=== PATIENT | female | born 1985 | race Hispanic/Latino ===

== ENCOUNTER 2016-07-01 05:55 | Day surgery (SDC) | payer OTHER ==
[~2016-07-01] VITALS: Ht 160 cm; Wt 63.7 kg
[2016-07-01] VITALS (7 sets, daily range): BP systolic 107–116; BP diastolic 65–71; PULSE 78–100; RESP 12–18; O2SAT 99–100
[~2016-07-01 05:55] MED LIST: PREN-12 PO
[2016-07-01] MEDS ORDERED: MetoCLOpramide 5 mg/mL 2 mL Inj ONE (05:56)
[2016-07-01] MEDS ORDERED: Propofol 10,000 mCg/mL 20 mL Inj ONE (05:56)
[2016-07-01] MEDS ORDERED: Ondansetron 2 mg/mL 2 mL Inj ONE (05:56)
[2016-07-01] MEDS ORDERED: Oxytocin 10 Unit/mL Inj ONE (05:56)
[2016-07-01] MEDS ORDERED: Phenylephrine/NS 100 mCg/mL 10 mL Syringe IVPUSH ONE (05:56)
[2016-07-01] MEDS ORDERED: Lidocaine PF 1% 30 mL Inj ONE (05:56)
[2016-07-01] MEDS ORDERED: fentaNYL-PF 50 mCg/mL 2 mL Inj ONE (05:56)
[2016-07-01] MEDS ORDERED: Succinylcholine Chloride 20 mg/mL 5 mL Inj ONE (05:56)
[2016-07-01] MEDS ORDERED: Dexamethasone 4 mg/mL Inj ONE (05:56)
[2016-07-01] MEDS: Lactated Ringer's 1,000 ML IV SCH ×2 (06:24→07:43)
[2016-07-01] MEDS ORDERED: Lactated Ringer's 1,000 ML IV SCH (07:12)
[2016-07-01] MEDS ORDERED: Lactated Ringer's 500 ML IV PRN (07:12)
--- NOTE | 2016-07-01 07:12 | PCM.HPANE ---
Patient Data Date of Service: Jul 01, 2016 Surgeon Admitting Provider: Attending Provider:Sivakumar Mera MD Primary Care Physician:Cadence Other Provider:Lucas Huerta Anesthesia Reason for Visit Missed Ab Ht/WT & BMI Height (Feet): 5 Height (Inches): 3.00 Weight (Kilograms): 63.7 Body Mass Index 24.00 Allergies Uncoded Allergies: ANESTHESIA (Allergy, Unknown, RASH, 06/29/16) Past Anesthesia History Anesthesia History: Positive for:: Anesthesia Reactions (itching- after c section- required rx), Fam Anesthesia Reaction (mother- blood pressure elevates) , Denies:: Abnormal Airway, Difficult Intubation Diabetes History Hx Diabetes?: No MRSA MRSA: No Medications Home Meds Incl Beta Georgiana: No Reported Medications Vit W-Ca,Fe,FA(<1 mg) ( Formula)1 Each Tablet1 Each PO DAILY 06/30/16 Discontinued Reported Medications Vit/Fe Fumarate/Fa-Expunged Drug, Do (-Expunged Drug, Do Not Renew!)1 Each Tablet1 Each PO BIW 12/21/09 History History of ENT Problems?: No HEENT History: Denies:: Abnormal Airway Cataracts Difficult Intubation Dysphagia Glaucoma Hearing Problem Sinus Problem TMJ Hx of Heart Problems?: No Hx of Respiratory Problem?: No Respiratory History: Denies:: Asthma COPD Emphysema Oxygen Administration Pneumonia Tuberculosis Use of C-PAP Machine Use of Inhalers / NEBS Hx Neurologic Problems?: No Neurological History: Denies:: Alzheimer's Disease CVA Dementia Dizziness Headaches Multiple Sclerosis Parkinson's Disease Seizures TIA Gastrointestinal History: Positive for:: Gastroesphageal Reflux (during ) Denies:: Cirrhosis Gall Bladder Disease Gastrointestinal Bleeding Heartburn Hepatitis Hiatal Hernia Liver Disease Hx of Problems?: No Genitourinary History: Denies:: Kidney Stones Urinary Tract Infection Female Hx: Denies:: Currently (missed AB) Problems with Breasts? Skin History: Denies:: History Skin Disorders? Pressure Ulcers Hx Musculoskeletal Problems?: No Musculoskeletal History: Denies:: Back Injury Fibromyalgia Joint Replacement Musculoskeletal Trauma Myasthenia Gravis Osteoarthritis Rheumatoid Arthritis Systemic Lupus Hx of Psycho/Social Problems?: No Psycho Social History: Denies:: Anxiety Hx Depression Hx Surgeries?: Yes (c section-) Hx Any Other Health Problems?: Yes Other History: Denies:: Cancer Thyroid Disease Hx Diabetes: No Hx Alcohol Use: NoHx Substance Use: NoHave You Smoked inLast 12 mo: No Stop/Bang Treated for Sleep Apnea?: No Do You Have a CPAP Machine?: No S-Snoring: Do You Snore Loudly: Yes T-Tired: feel tired, fatigued: No O-Obsered: Observed not breath: No P-Blood Pressure: treated: No B- Body Mass Index > 35 kg/m2: No A- Age over 50: No N- Neck Large Circumference: No G- Gender Male: No JARED Total Score: 1 JARED Risk Assessment: Low Risk, <3 Yes Risk Assessment Category Category 1A: Patient has history of documented sleep apnea, and HAS NOT received any narcotic, sedative or anesthesia administration during this stay. Category 1B: Patient has history of documented sleep apnea, and HAS received any narcotic , sedative or anesthesia administration during this stay Category 2: Patient has SUSPECTED Obstructive Sleep Apnea, and HAS received any narcotic , sedative or anesthesia administration during this stay. Category 3: Patient has SUSPECTED Obstructive Sleep Apnea and HAS NOT received narcotic, sedative or anesthesia administration during this stay. Category 4: Outpatient in Procedural Areas with known sleep apnea or who screen positive for High Risk via the STOP/BANG questionnaire. Exam Exam Vital Signs Vital Signs Date Time Temp Pulse Resp B/P Pulse Ox O2 Delivery O2 Flow Rate FiO2 07/01/16 06:36 36.3 81 16 109/66 99 Room Air General Appearance: Alert, Oriented X3, Cooperative HEENT/AIRWAY: MP 1 Lungs: Clear to Auscultation, Normal Air Movement Heart: Regular Rate/Rhythm, Normal S1, Normal S2 Meds/Labs/Diagnostics Admission Meds Current Medications Lactated Ringer's (Lr) 1,000 ml @ 120 mls/hr [id number] IV Last administered on t 06:24; Start 07/01/16 at 05:00; Stop 07/01/16 at 13:19 Plan Impression Patient chart reviewed, patient interviewed and anesthestic plan with risks, benefits, and alternatives discussed, and informed consent obtained. NPO Status: 06/30 at 2200 ASA Physical Status: ASA1 Normal Healthy Anesthetic Plan: GA Bene/Risks/Altern/Consents: Yes HP Complete Prior to Induction: Yes Yusuf Villafana MD Jul 01, 2016 07:02
[2016-07-01] MEDS ORDERED: Labetalol 5 mg/mL 4 mL Inj IV PRN (07:15)
[2016-07-01] MEDS ORDERED: HYDROmorphone 1 mg/mL Inj IVPUSH PRN ×2 (07:15→07:45)
[2016-07-01] MEDS ORDERED: MetoCLOpramide 5 mg/mL 2 mL Inj IVPUSH PRN ×2 (07:15→07:45)
[2016-07-01] MEDS ORDERED: Ondansetron 2 mg/mL 2 mL Inj IVPUSH PRN ×2 (07:15→07:45)
[2016-07-01] MEDS ORDERED: fentaNYL-PF 50 mCg/mL 2 mL Inj IVPUSH PRN (07:15)
[2016-07-01] MEDS ORDERED: hydrALAZINE 20 mg/mL Inj IVPUSH PRN (07:15)
[2016-07-01] MEDS ORDERED: Atropine 0.4 mg/mL Inj IVPUSH PRN (07:15)
[2016-07-01] MEDS ORDERED: Phenylephrine 10,000 mCg/mL Inj IVPUSH PRN (07:15)
[2016-07-01] MEDS ORDERED: EPHEDrine Sulfate 50 mg/mL Inj IVPUSH PRN (07:15)
[2016-07-01] MEDS ORDERED: Dexamethasone 4 mg/mL Inj IVPUSH PRN (07:15)
--- NOTE | 2016-07-01 08:33 | PCM.ANEP1 ---
Post Anesthesia Phase 1 PACU Phase 1 Assessment Date of Service: Jul 01, 2016 Vital Signs BP 116/71, HR 98, RR 17, T 37.1, O2 100% 10L Vital Signs Date Time Temp Pulse Resp B/P Pulse Ox O2 Delivery O2 Flow Rate FiO2 07/01/16 06:36 36.3 81 16 109/66 99 Room Air Anesthetic Administered: GA Level of Alertness: Awake, talking KYLE's with Equal Strength: Yes Pain: No Nausea or Vomiting: No Oxygen Delivery: Simple Mask Lungs: Normal Air Movement Yusuf Villafana MD Jul 01, 2016 08:33
[2016-07-01] MEDS ORDERED: Lactated Ringer's 1,000 ML IV ONE (09:00)
--- NOTE | 2016-07-01 09:33 | PCM.ANEP2 ---
Post Anesthesia Evaluation ASA/CMS Post Anesthesia Date of Service: Jul 01, 2016 VS in Patient's Normal Range?: Yes Resp Stable; Airway Patent?: Yes CV Function & Hydration Stable: Yes Mental Status Recovered?: Yes Pain control Satisfactory?: Yes N/V Control Satisfactory?: Yes Yusuf Villafana MD Jul 01, 2016 09:33
--- NOTE | 2016-07-01 23:07 | OP ---
[address] [address] OPERATIVE REPORT PATIENT: PETER GARRIDO : 1985 MR#: [id number] ADMIT: 07/01/2016 JOB ID: [id number] DATE OF SURGERY: 07/01/2016 SURGEON: Sivakumar Mera MD VIDEO SYSTEM REPAIRER: None. ANESTHESIA: General. PREOPERATIVE DIAGNOSIS(ES): First trimester missed . POSTOPERATIVE DIAGNOSIS(ES): First trimester missed . PROCEDURE PERFORMED: Suction dilatation and curettage. FINDINGS AT SURGERY: Uterus sounded to 10-1/2 cm. Cervix was already dilated to approximately 8 mm. There was a moderate amount of products of conception recovered upon suction D and C. Blood loss was in the 100 cc range. At procedure's close, no additional products of conception were recovered on suction or gentle sharp curettage. It certainly is anticipated that patient will do very well during the postoperative timeframe as well as long-term. She has been reassured that this missed AB has not been related to something that she has or has not done. PROCEDURE IN DETAIL: The patient was placed in supine position on the operating table and general anesthesia was induced. She was then very carefully repositioned into the low dorsal lithotomy position and prepped and draped in the usual sterile manner. After appropriate time-out was taken, a weighted speculum was placed posteriorly, and a tenaculum on the anterior cervical lip and another on the posterior cervical lip. Uterus was sounded. Cervix was noted to be dilated pretty much up to 8-9 mm, and size 8 straight suction tip was selected. Suction curettage was then accomplished with return of a moderate amount of tissue with some blood. Once no additional tissue was recovered, gentle sharp curettage was accomplished with demonstration of clean endometrial lining. Uterus then contracted well with massage plus intravenous Pitocin infusion and bleeding became very little. All instruments were then removed from the uterus, cervix and vagina and counts were found to be correct as was the sponge count. There was then no further bleeding of note by procedure's close. COMPLICATIONS: None. ESTIMATED BLOOD LOSS: 100 cc. PROGNOSIS: Good for surgical recovery. [facility]
--- NOTE | 2016-07-05 10:02 | PATH ---
SURGICAL PATHOLOGY Attending Physician:Sivakumar Mera M.D CASE STATUS: Signed Out PATIENT NAME: PEETR GARRIDO PID: [id number] : 1985 DATE COLLECTED:07/01/2016 16:23 SPECIMEN: Products of conception CLINICAL HISTORY: INCOMPLETE MISSED 1). PRODUCTS OF CONCEPTION FINAL DIAGNOSIS: Uterine Contents: Products of conception (immature chorionic villi). Negative for abnormal villi that would suggest gestational trophoblastic disease. ICD10 O0.2 GROSS DESCRIPTION: The specimen is received in formalin, labeled with the patient's name, sublabeled as products of conception and consists of multiple fragments of wagner-white spongy glistening hemorrhagic tissue (9.8 x 2.7 x 0.4 cm in aggregate). No parts are identified. Section code: (A-D) tissue. Specimen entirely submitted. 07/01/16 ICD-9 CODES: CPT CODES: 1: 49545 Electronically Signed Out Moi Barrett MD, PhD [facility] [address], [place] [address] Technical component performed at [facility], [address] [place] [address] Ave[address], [place], [address]
== END 2016-07-01 23:59 | disposition home or self-care (01) ==
LOC: SAS 05:55
PROVIDERS: ATTEND Obstetrics & Gynecology
DX: O02.1 Missed abortion (principal); F41.9 Anxiety disorder, unspecified
CPT/HCPCS: 59820; J0330; J1100; J1885; J2250; J2370; J2405; J2590; J2765; J3010; J7120